=== PATIENT | female | born 1955 | race Caucasian/White ===

== ENCOUNTER 2017-11-26 11:06 | Inpatient (IN) | payer OTHER ==
[~2017-11-26] VITALS: Ht 157.5 cm; Wt 90.0 kg
[2017-11-26 11:59] LABS: HEMATOCRIT 42.4 % (36.0-46.0); HEMOGLOBIN 14.8 G/DL (11.9-15.5); MCH 30.1 PG (29.0-34.0); MCHC 34.9 G/DL (30.0-36.0); MCV 86.4 FL (83-99); PLATELET COUNT 336 K/uL (156-360); RBC DIS.WIDTH-CV 12.6 % (11.8-14.6); RBC DIS.WIDTH-SD 39.3 % (39-53); RED BLOOD COUNT 4.91 M/uL (3.80-5.20); WHITE BLOOD COUNT 8.6 K/uL (4.1-10.2)
[2017-11-26 12:13] LABS: CHLORIDE 106 mEq/L (99-109); SODIUM 142 mEq/L (136-147)
[2017-11-26 12:15] LABS: GLUCOSE 95 mg/dL (70-99)
[2017-11-26 12:19] LABS: CREATININE 0.8 mg/dL (0.6-1.3); GFR ESTIMATE (CALCULATED) > 59 mL/min/
[2017-11-26 12:20] LABS: UREA NITROGEN (BUN) 20 mg/dL (9-23)
[2017-11-26 12:26] LABS: TROP-I INTERPRETATION NEGATIVE; TROPONIN-I < 0.01 ng/mL (0.0-0.30)
[2017-11-26 13:55] VITALS: BP 170/96
[2017-11-26 15:13] VITALS: BP 174/87
[2017-11-26 18:50] LABS: TROP-I INTERPRETATION NEGATIVE; TROPONIN-I < 0.01 ng/mL (0.0-0.30)
[2017-11-26 22:13] VITALS: BP 157/86
[2017-11-26 23:50] LABS: TROP-I INTERPRETATION NEGATIVE; TROPONIN-I 0.02 ng/mL (0.0-0.30)
[2017-11-27 00:57] VITALS: BP 140/80
[2017-11-27 07:01] LABS: TROP-I INTERPRETATION NEGATIVE; TROPONIN-I 0.04 ng/mL (0.0-0.30)
[2017-11-27 08:36] VITALS: BP 139/77
[2017-11-27 15:20] VITALS: BP 159/89
[2017-11-27 20:45] VITALS: BP 185/90
[2017-11-27 22:10] VITALS: BP 136/71
[2017-11-28 03:00] VITALS: BP 137/63
[2017-11-28 08:16] VITALS: BP 123/74
[2017-11-28] MEDS ORDERED: LOSARTAN POTASS25 MG PO (12:10)
[2017-11-28] MEDS ORDERED: CLOPIDOGREL75 MG PO (12:10)
[2017-11-28] MEDS ORDERED: ASPIR-LOW81 MG PO (12:11)
[2017-11-28] MEDS ORDERED: ATORVASTATIN CA80 MG PO (12:11)
== END 2017-11-28 12:50 | disposition home or self-care (01) | DRG 249 ==
LOC: EME 11:06 → ENRESERV 12:59 → EDOF 13:01 → 4SOUTH 13:01 → EDOF 13:01 → ENRESERV 13:09 → 4SOUTH 13:49 → 4EAST 11-27 15:22 → 4SOUTH 11-27 15:22 → CANRESERV 11-27 15:37 → ENRESERV 11-27 15:37 → 4EAST 11-27 20:42
PROVIDERS: Physician Assistant
DX: I25.110 Atherosclerotic heart disease of native coronary artery with unstable angina pectoris (principal); I10 Essential (primary) hypertension; F41.9 Anxiety disorder, unspecified; E78.5 Hyperlipidemia, unspecified; K80.20 Calculus of gallbladder without cholecystitis without obstruction; E66.9 Obesity, unspecified; Z68.36 Body mass index [BMI] 36.0-36.9, adult; Z82.49 Family history of ischemic heart disease and other diseases of the circulatory system; Z79.82 Long term (current) use of aspirin
CPT/HCPCS: 71046; 78452; 80048; 84484; 85027; 85347; 93005; 93017; 93306; 99281; 99285; A9500; C1725; C1769; C1887; G0378; J0153; J1644; J2250; J3010; J7030